=== PATIENT | male | born 1960 | race Caucasian/White ===

== ENCOUNTER 2018-12-06 16:44 | Emergency (ER) | payer MEDICAID ==
[~2018-12-06] VITALS: Ht 167.6 cm; Wt 68.0 kg
[2018-12-06 17:00] VITALS: BP 128/62
--- NOTE | 2018-12-06 18:28 | NUR ---
no change in patient's status or no new complaints. awaiting available bed. nad. vss. will continue to monitor.
--- NOTE | 2018-12-06 18:58 | NUR ---
PT TO ER BED 5
--- NOTE | 2018-12-06 19:06 | NUR ---
PATIENT PRESENTS TO THE ED WITH C/O LOWER BACK RASHX2 WEEKS. PATIENT STATES HE FEELS ITCHY. SKIN IS INTACT. NO S/S OF DISTRESS NOTED. NO C/O PAIN AT THIS TIME. BED LOWERED, AT BEDSIDE. MD AWARE OF PATIENT'S STATUS
--- NOTE | 2018-12-06 19:13 | NUR ---
Pt report given to DEBRA BERRY. Transfer of care at this time.
[2018-12-06 19:25] VITALS: BP 119/65
--- NOTE | 2018-12-06 19:25 | NUR ---
Patient discharged with v/s stable. Written and verbal after care instructions given and explained. Patient alert, oriented and verbalized understanding of instructions. Ambulatory with steady gait. All questions addressed prior to discharge. ID band removed. Patient advised to follow up with PMD. Rx of NORCO, ACYCLOVIR, AND NAPROSYN given. Patient educated on indication of medication including possible reaction and side effects. Opportunity to ask questions provided and answered.
== END 2018-12-06 19:25 | disposition home or self-care (01) ==
LOC: MED 16:44
DX: B02.9 Zoster without complications (principal); Z88.0 Allergy status to penicillin; Z98.890 Other specified postprocedural states
CPT/HCPCS: 99283

== ENCOUNTER 2019-11-10 17:29 | Emergency (ER) | payer MEDICAID ==
[~2019-11-10] VITALS: Ht 167.6 cm; Wt 68.0 kg
[2019-11-10 17:37] VITALS: BP 137/72
--- NOTE | 2019-11-10 17:40 | NUR ---
TO LOBBY A/W BED AMBULATORY
--- NOTE | 2019-11-10 19:48 | NUR ---
AMBULATES TO BED 10 WITH UPRIGHT, STEADY GAIT. ACCOMPANIED BY .
--- NOTE | 2019-11-10 19:50 | NUR ---
59 YO M BIB SELF AND PRESENTS TO ED C/O GENERALIZED RASH X 2 WEEKS. RED PAPULAR RASH NOTED IN CLUSTERS THROUGHOUT CHEST, NECK, TRUNK AND UPPER EXTREMETIES. PT DENIES PAIN BUT REPORTS MILD ITCHING. NO DRAINAGE OR CRUSTING NOTED. DENIES NVD, FEVER. SAW PMD, DR. SALDANA AND WAS GIVEN RX FOR ZYRTEC. TAKING ZYRTEC X 9 DAYS WITH NO RELIEF OR CHANGE IN RASH. PMH-- KIDNEY STONES, DEPRESSION
--- NOTE | 2019-11-10 20:28 | NUR ---
DR. ROMULO VINSON AT BEDSIDE.
[2019-11-10] MEDS ORDERED: DEXAMETHASONE 10 MG/ML VIAL IM ONE (20:50)
[2019-11-10 21:00] VITALS: BP 121/68
--- NOTE | 2019-11-10 21:00 | NUR ---
Patient discharged with v/s stable. Written and verbal after care instructions given and explained. Patient alert, oriented and verbalized understanding of instructions. Ambulatory with steady gait. All questions addressed prior to discharge. ID band removed. Patient advised to follow up with PMD. Rx of BENADRYL; PREDNISONE given. Patient educated on indication of medication including possible reaction and side effects. Opportunity to ask questions provided and answered.
== END 2019-11-10 21:00 | disposition home or self-care (01) ==
LOC: MED 17:29
DX: L25.9 Unspecified contact dermatitis, unspecified cause (principal); F32.9 Major depressive disorder, single episode, unspecified; Z88.0 Allergy status to penicillin
CPT/HCPCS: 96372; 99283; J1100

== ENCOUNTER 2021-08-15 17:47 | Emergency (ER) | payer MEDICAID ==
[~2021-08-15] VITALS: Ht 167.6 cm; Wt 64.4 kg
[2021-08-15 17:57] VITALS: BP 154/84
--- NOTE | 2021-08-15 18:15 | NUR ---
MD [place] ASSESSING PT IN TRIAGE.
[2021-08-15] MEDS ORDERED: GLYC15SO12 OP (18:20)
--- NOTE | 2021-08-15 18:33 | NUR ---
Patient discharged with v/s stable. Written and verbal after care instructions given and explained. Patient alert, oriented and verbalized understanding of instructions. Ambulatory with to car. All questions addressed prior to discharge. ID band removed. Patient advised to follow up with PMD. Rx of [id number]/HYPROMELLOSE/GLYCERIN given. Patient educated on indication of medication including possible reaction and side effects. Opportunity to ask questions provided and answered.
[2021-08-15 18:34] VITALS: BP 154/84
== END 2021-08-15 18:33 | disposition home or self-care (01) ==
LOC: MED 17:47
DX: H11.31 Conjunctival hemorrhage, right eye (principal); Z88.0 Allergy status to penicillin
CPT/HCPCS: 99283

== ENCOUNTER 2023-02-16 17:54 | Emergency (ER) | payer MEDICARE, MEDICAID ==
[~2023-02-16] VITALS: Ht 167.6 cm; Wt 63.0 kg
[~2023-02-16 17:54] MED LIST: PEG15DRO10 OP
[2023-02-16 18:09] VITALS: BP 165/70
[2023-02-16 20:02] VITALS: BP 165/70
--- NOTE | 2023-02-16 20:02 | NUR ---
Patient discharged with v/s stable. Written and verbal after care instructions given and explained. Patient verbalized understanding. Ambulatory with steady gait. All questions addressed prior to discharge. Advised to follow up with PMD.
== END 2023-02-16 20:02 | disposition home or self-care (01) ==
LOC: MED 17:54
DX: R05.9 Cough, unspecified (principal); M54.2 Cervicalgia; I10 Essential (primary) hypertension; E03.9 Hypothyroidism, unspecified; Z88.0 Allergy status to penicillin; Z79.899 Other long term (current) drug therapy
CPT/HCPCS: 71045; 99283